=== PATIENT | male | born 1995 | race Caucasian/White ===

== ENCOUNTER 2016-09-30 21:53 | Emergency (ER) | payer SELFPAY ==
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
[2016-09-30 22:31] LABS: BASOPHIL # 0.1 K/uL (0.0-0.2); BASOPHIL % 0.9 %; EOSINOPHIL # 0.2 K/uL (0.0-0.5); EOSINOPHIL % 3.9 %; HEMOGLOBIN 15.8 g/dL (12.0-17.0); IMMATURE GRANULOCYTE % 0.2 %; LYMPHOCYTE # 2.1 K/uL (0.8-4.0); LYMPHOCYTE % 39.1 %; MCH 31.8 pg (27.0-34.0); MCHC 35.9 gm/dL (32.0-36.5); MCV 88.5 fl (83.0-98.0); MONOCYTE # 0.4 K/uL (0.0-1.0); MONOCYTE % 7.6 %; MPV 10.8 fl (9.4-12.4); NEUTROPHIL # (ANC) 2.6 K/uL (1.4-9.0); NEUTROPHIL % 48.3 %; NRBC % 0 /100WBC (0-0.00); PLATELET COUNT 210 K/uL (150-450); RBC 4.97 M/uL (4.00-6.00); WBC 5.4 K/uL (4.0-11.0)
[2016-09-30 22:50] LABS: ALBUMIN 4.2 gm/dL (3.5-5.0); ALK PHOS 107 IU/L (33-138); ALT 13 IU/L (12-78); ANION GAP 9.6 (10.0-19.0); AST 18 IU/L (10-40); BLOOD UREA NITROGEN 9 mg/dL (6-24); CALCIUM 8.8 mg/dL (8.5-10.5); CHLORIDE 107 mMol/L (96-110); CO2 30 mMol/L (22-32); ESTIMATED GFR (MDRD EQUATION) > 60; POTASSIUM 3.6 mMol/L (3.7-5.1); SODIUM 143 mMol/L (135-145); TOTAL BILIRUBIN 0.4 mg/dL (0.0-1.5); TOTAL PROTEIN 7.5 g/dL (6.0-8.4)
== END 2016-09-30 23:17 | disposition disaster alternative care site (69) ==
LOC: GMED 21:53
PROVIDERS: Nurse Practitioner Family
DX: S06.0X0A Concussion without loss of consciousness, initial encounter (principal); Y04.2XXA Assault by strike against or bumped into by another person, initial encounter